=== PATIENT | male | born 1955 | race Caucasian/White ===

== ENCOUNTER → 2021-10-29 | Outpatient (CLI) | payer MEDICARE, BC ==
[~2021-10-29] MED LIST: ACETAMINOPHEN500 M1 PO; ACYCLOVIR 400400 MG PO; AMBIEN 10 MG TA10 MG PO; ARIMIDEX1 MG PO; CELEXA 20 MG TA20 MG PO; DEMADEX20 MG PO; ELIQUIS5 MG PO; GLIMEPIRIDE4 MG PO; IRON325 PO; JARDIANCE10 MG PO; KLOR-CON M2020 MEQ PO; LEVOTHYROXINE200 MC2 PO; LIPITOR80 MG PO; MELATONIN10 M3 PO; SPIRONOLACTONE25 MG PO; VITAMIN B125000 MCG PO; VITAMIN D21250 MCG PO; VITAMIN D31250 MC1 PO; XANAX 0.5 MG0.5 MG PO
== END ==
LOC: M.LAB 16:26
PROVIDERS: ATTEND Surgery
DX: Z01.812 Encounter for preprocedural laboratory examination (principal); Z20.822 Contact with and (suspected) exposure to COVID-19

== ENCOUNTER → 2021-10-30 | Day surgery (SDC) | payer MEDICARE, BC ==
[2021-10-30 08:39] LABS: CALCIUM 8.3 mg/dL (8.5-10.1); CREATININE 1.6 mg/dL (0.6-1.3); POTASSIUM 3.9 mmol/L (3.5-5.1)
[2021-10-30 08:43] LABS: APTT 23.6 Seconds (25.0-31.3); PROTIME 10.7 Seconds (9.20-11.50)
[2021-10-30 08:58] LABS: HEMATOCRIT 36.3 % (42.0-52.0); HEMOGLOBIN 12.1 gm/dL (14.0-18.0); MCH 33.2 pg (26.0-34.0); MCHC 33.3 g/dL (28.0-37.0); MCV 99.7 fL (80.0-100.0); RBC 3.64 mil/uL (4.50-6.00); RDW-CV 16.4 % (10.5-14.5); WBC 4.7 thou/uL (4.0-11.0)
--- NOTE | 2021-10-30 09:45 | EKG ---
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
--- NOTE | 2021-11-01 11:09 | OP ---
[facility] [address] [place] [address] OPERATIVE REPORT Name: VASQUEZ MILLER Room: [facility].#: [id number] Admission: 10/30/21 Attend Phys: Raudel Sierra Discharge: Date of : 51 Report #: [id number] THIS REPORT FOR: cc: Tara Cates MD, Kelly A. MD Patterson, Jonathan D. MD ~ DATE OF SURGERY: 10/30/2021 PREOPERATIVE DIAGNOSIS: Condyloma acuminata of the abdomen, genitals and buttocks. POSTOPERATIVE DIAGNOSIS: Condyloma acuminata of the abdomen, genitals and buttocks. OPERATION: 1. Excision of abdominal wall condyloma acuminata. 2. Excision of genital condyloma acuminata. 3. Excision of buttock condyloma acuminata. SURGEON: Raudel Sierra MD ANESTHESIA: General. ESTIMATED BLOOD LOSS: Minimal. SPECIMENS: 1. Abdominal wall condyloma acuminata. 2. Genital condyloma acuminata. 3. Buttock condyloma acuminata. DESCRIPTION OF PROCEDURE: After informed consent was obtained, the patient was brought to the operating room and placed supine. SCDs were placed and working, preoperative antibiotics were administered, general anesthesia was induced. The abdomen, genitals and buttocks were prepped and draped in the usual sterile fashion. He had 2 lesions in the right lower quadrant of the abdomen. These were grasped. These were about 1 cm in size. These were verrucous lesions. They were excised at their base using cautery. The base was then fulgurated with cautery. Sterile dressings were applied. He had multiple lesions on the glans of his penis as well as the foreskin. These were grasped and excised with cautery and fulgurated. The lesions were approximately 2 mm in size. He had 1 on his right groin, which was excised as well. The patient was placed in the left lateral decubitus position and he had 2 lesions measuring 1.5 cm each in his cleft. These were excised with cautery and the base fulgurated. [place] [address] OPERATIVE REPORT Name: VASQUEZ MILLER [id number] Admission: 10/30/21 Attend Phys: Raudel Sierra Discharge: Date of : 51 Report #: [id number] COMPLICATIONS: None. DISPOSITION: The patient was taken to recovery in satisfactory condition. <ELECTRONICALLY SIGNED> By: Raudel Sierra MD 11/01/21 1109 1040 1050Joelinor Sierra MD /nt
--- NOTE | 2021-11-02 17:06 | PATH ---
[address] [address] PATHOLOGY RPT PROCEDURE Name: VASQUEZ MILLER Room: [facility] Katherine#: [id number] Admission: 10/30/21 Date of : 51 Discharge: Report #: [id number] Path Case #: [id number] [facility] Accession Number: [id number] . 01 Material submitted: . PART A: abdomen - ABDOMINAL CONDYLOMA PART B: genital organ - GENITAL CONDYLOMA PART C: buttock - BUTTOCK CONDYLOMA . 01 Clinical history: . EXCISION CONDYLOMA ANAL CONDYLOMA . 02 Diagnosis: A. Abdominal condyloma: - Condyloma acuminatum (condylomata acuminata), negative for high-grade squamous intraepithelial lesion (GRETCHEN). . B. Genital condyloma: - Condyloma acuminatum (condylomata acuminata), negative for high-grade GRETCHEN. . C. Buttock condyloma: - Condyloma acuminatum (condylomata acuminata), negative for high-grade GRETCHEN. . (DANIELLE:pilo; 11/02/2021) [facility] 11/02/2021 [facility] Local . 02 Electronically signed: . Silvino Azevedo MD, Pathologist NPI- [id number] . 01 Gross description: . A. Received in formalin labeled "Vasquez Miller, abdominal condyloma" are 2 irregular fragments of hernandez-white skin and underlying yellow-hernandez soft tissue measuring 1.3 x 1.0 x 0.7 cm and 2.3 x 1.5 x 1.1 cm. The resection margins are inked blue and black respectively. The skin surfaces display raised hernandez-white verrucoid lesions measuring 1.1 and 2.3 cm in greatest dimension. Aircraft Maintenance Technician cross-sections are submitted in cassette A1. . B. Received in formalin labeled "Vasquez Miller, genital condyloma" are numerous irregular fragments of hernandez-white verrucoid skin lesions and attached uninvolved soft tissue measuring in aggregate 3.7 x 3.3 x 1.2 cm. The margins are not inked due to the fragmented nature of the specimen. Aircraft Maintenance Technician sections are submitted in cassette B1. . C. Received in formalin labeled "Vasquez Miller, buttock condyloma" [place] [address] PATHOLOGY RPT PROCEDURE Name: VASQUEZ MILLER Room: [facility]#: [id number] Admission: 10/30/21 Date of : 51 Discharge: Report #: [id number] Path Case #: [id number] are 2 irregular fragments of hernandez-white verrucoid lesional tissue with scant attached uninvolved yellow-hernandez soft tissue measuring 1.7 x 1.4 x 0.7 cm and 2.3 x 1.7 x 1.0 cm. The resection margins are inked blue and black respectively. Aircraft Maintenance Technician cross-sections are submitted in cassette C1. [place]21[place] [facility] 11/02/2021 1556 Local . 02 Pathologist provided ICD-10: A63.0 . 02 CPT . 100284, 410881, 502375 Specimen Comment: A courtesy copy of this report has been sent to [phone] Specimen Comment: [id number] Specimen Comment: Report sent to / DR FAUST Performed at: 01 [facility] [address], [place] [id number] MD Miah Martinez MD Phone: [phone] Performed at: 02 [facility] [address], [place], [place] [id number] MD Silvino Azevedo MD Phone: [phone]
== END | disposition home or self-care (01) ==
LOC: M.SUR 07:02
PROVIDERS: ATTEND Surgery
DX: A63.0 Anogenital (venereal) warts (principal); Z98.890 Other specified postprocedural states; Z79.899 Other long term (current) drug therapy; Z79.01 Long term (current) use of anticoagulants